=== PATIENT | female | born 1995 | race African-American/Black ===

== ENCOUNTER 2016-11-11 22:00 | Inpatient (IN) | payer BC ==
[2016-11-11] MEDS ORDERED: fentaNYL* 50 MCG/ML 2 ML VIAL (100 MCG VIAL) ONE (22:33)
[2016-11-11 22:37] LABS: Hematocrit 27 % (35-47); Hemoglobin 8.6 g/dl (12.0-16.0); Mean Corpuscular HGB Conc 32 g/dl (31-36); Mean Corpuscular Hemoglobin 23 pg (27-31); Mean Corpuscular Volume 73 fL (80-97); Mean Platelet Volume 9 um3 (7.4-10.4); Red Blood Count 3.74 10^6/ul (4.0-5.4); Red Cell Distribution Width 18 % (10.5-15); White Blood Count 19.7 10^3/ul (3.5-10.8)
[2016-11-11 22:44] LABS: Comments Flag Yes
[2016-11-11] MEDS ORDERED: Propofol* 10 MG/ML 20 ML BTL IV PUSH ONE (22:50)
[2016-11-11] MEDS ORDERED: Lidocaine 2% PF* 5 ML VIAL ONE (22:50)
[2016-11-11] MEDS ORDERED: OXYTOCIN* 10 UNITS/ML 1 ML VIAL ONE ×2 (22:50→22:57)
[2016-11-11] MEDS ORDERED: ceFOXitin 2 GM IVPREMIX* 2 GM/50 ML BAG ONE (22:53)
[2016-11-11] MEDS ORDERED: Acetaminophen TAB* 325 MG PO PRN (23:18)
[2016-11-11] MEDS ORDERED: Dibucaine 1% 28.35 GM TUBE PR PRN (23:18)
[2016-11-11] MEDS ORDERED: Witch Hazel PAD* JAR TOPICAL PRN (23:18)
[2016-11-11] MEDS ORDERED: Glycerin ADULT SUPP PR PRN (23:18)
[2016-11-11] MEDS ORDERED: Oxytocin in LR* 20 UNITS/1,000 ML BAG IVPB SCH (23:45)
[2016-11-11] MEDS ORDERED: Oxytocin in LR* 20 UNITS/1,000 ML BAG IVPB ONE (23:46)
[2016-11-12] MEDS: Ibuprofen TAB* 600 MG PO PRN ×3 (08:19→20:42)
[2016-11-12] MEDS: Docusate CAP* 100 MG PO SCH ×3 (08:21→20:42)
[2016-11-12] MEDS: Ferrous Gluconate TAB* 324 MG TAB PO SCH ×2 (08:27→20:42)
[2016-11-12] MEDS ORDERED: Simethicone CHEW TAB* 80 MG PO SCH (08:30)
[2016-11-12 09:55] LABS: Benzodiazepine Urine Screen None Detected (None Detect)
[2016-11-12 10:29] LABS: Hematocrit 28 % (35-47); Hemoglobin 8.9 g/dl (12.0-16.0); Mean Corpuscular HGB Conc 32 g/dl (31-36); Mean Corpuscular Hemoglobin 23 pg (27-31); Mean Platelet Volume 9 um3 (7.4-10.4); Red Blood Count 3.86 10^6/ul (4.0-5.4); Red Cell Distribution Width 18 % (10.5-15); White Blood Count 21.9 10^3/ul (3.5-10.8)
[2016-11-12 10:37] LABS: Comments Flag Yes
[2016-11-12 10:38] LABS: Mean Corpuscular Volume 72 fL (80-97)
--- NOTE | 2016-11-12 12:15 | PRO ---
NOTE: DATE OF OPERATION: 11/11/16 - ROOM #[id number]-118 DATE OF : 89 SURGEON/STUDIO MUSICIAN: Vijay Rasheed MD GEOLOGICAL DRAFTER: Elizabeth Wisdom CNM ANESTHESIA: Spinal intrathecal. PRE-OP DIAGNOSIS: A 33 weeks, in labor. POST-OP DIAGNOSIS: A 33 weeks, in labor with vertex breech delivery. OPERATIVE PROCEDURE: Vertex delivery followed by breech extraction. COMPLICATIONS: None. DESCRIPTION OF PROCEDURE: The patient presented to labor and delivery at 33 weeks at full dilation. She quickly had an IV placed in the labor room and brought back to the operating room. I explained to the patient that we would proceed with vaginal followed by breech extraction and an intrathecal was placed. She immediately pushed with rapid delivery of baby A, and baby B was grabbed by the foot and with some difficulty initially the second foot could not be located, attempts were made to rupture membranes to be able to feel things better. The ultrasound was used to also locate this area. Heart beat was noted to be good throughout the procedure by the pastry assistant. With artificial rupture of membranes, the second foot was located and at this point breech extraction was able to be performed. This happened without difficulty. There was no difficulty in delivering the head. Cords were doubly clamped and cut. Cord pHs were obtained, cord blood was obtained from placenta. Placenta delivered spontaneously and the patient was found to be intact. The patient returned to the recovery room in stable condition. [id number]/[facility] #: [id number] MTDD
[2016-11-13] MEDS: Docusate CAP* 100 MG PO SCH ×2 (09:06→14:00)
[2016-11-13] MEDS: Ibuprofen TAB* 600 MG PO PRN (09:07)
[2016-11-13] MEDS: Ferrous Gluconate TAB* 324 MG TAB PO SCH (09:07)
[2016-11-13 20:35] VITALS: BP 101/59
== END 2016-11-13 19:20 | disposition home or self-care (01) | DRG 560 ==
LOC: MCHOBOUT 22:00 → MCHOB 22:24
PROVIDERS: ADMIT Obstetrics & Gynecology; ATTEND Obstetrics & Gynecology
PROC: 10907ZC Drainage of Amniotic Fluid, Therapeutic from Products of Conception, Via Natural or Artificial Opening (ICD-10-PCS; principal; 2016-11-11)
PROC: 4A1HXCZ Monitoring of Products of Conception, Cardiac Rate, External Approach (ICD-10-PCS; 2016-11-11)
PROC: 10E0XZZ Delivery of Products of Conception, External Approach (ICD-10-PCS; 2016-11-11)
PROC: 10D07Z8 Extraction of Products of Conception, Other, Via Natural or Artificial Opening (ICD-10-PCS; 2016-11-11)
DX: O32.8XX2 Maternal care for other malpresentation of fetus, fetus 2 (principal); O60.14X1 Preterm labor third trimester with preterm delivery third trimester, fetus 1; O60.14X2 Preterm labor third trimester with preterm delivery third trimester, fetus 2; Z37.2 Twins, both liveborn; O90.81 Anemia of the puerperium; O30.043 Twin pregnancy, dichorionic/diamniotic, third trimester; Z3A.33 33 weeks gestation of pregnancy
CPT/HCPCS: 36415; 80307; 85025; 85027; 86850; 86900; 86901; 88307; A9270-GY; J0694; J2590; J2704; J3010

== ENCOUNTER 2017-07-15 11:50 | Emergency (ER) | payer BC, MEDICAID ==
[2017-07-15 12:31] VITALS: BP 111/74
--- NOTE | 2017-07-15 13:32 | UC ---
Respiratory Complaint HPI - HPI Summary HPI Summary: Pt c/o cough, nasal congestion and wheezing X 3-4 days. - History of Current Complaint Chief Complaint: UCGeneralIllness Stated Complaint: COUGH,CONGESTION Time Seen by Provider: 07/15/17 13:28 Hx Obtained From: Patient Hx Last Menstrual Period: 06/2017 is on BCP ?: No Onset/Duration: Sudden Onset, Lasting Days Timing: Constant Severity Initially: Mild Severity Currently: Moderate Character: Cough: Productive Aggravating Factors: Exertion, Deep Breaths, Recumbent Position Alleviating Factors: Nothing Associated Signs And Symptoms: Positive: Wheezing, URI, Nasal Congestion - Risk Factors Pulmonary Embolism Risk Factors: Oral Contraceptives, Smoking Cardiac Risk Factors: Smoking Pseudomonas Risk Factors: Negative Tuberculosis Risk Factors: Smoking - Allergies/Home Medications Allergies/Adverse Reactions: Allergies Allergy/AdvReac Type Severity Reaction Status Date / Time No Known Allergies Allergy Verified 07/15/17 12:31 Home Medications: Home Medications Etonogestrel [Nexplanon] 68 mg IMPLANT DAILY 07/15/17 [History Confirmed ] PMH/Surg Hx/FS Hx/Imm Hx Previously Healthy: Yes - Surgical History Surgical History: None - Family History Known Family History: Positive: Cardiac Disease - Social History Occupation: Employed Full-time Lives: With Family Alcohol Use: None Substance Use Type: None Smoking Status (MU): Light Every Day Tobacco Smoker Type: Cigarettes Amount Used/How Often: < 1/2 ppd Have You Smoked in the Last Year: Yes - Immunization History Most Recent Influenza Vaccination: none Most Recent Tetanus Shot: 07/15/14 Most Recent Pneumonia Vaccination: 0 Review of Systems Constitutional: Chills, Fatigue Skin: Negative Eyes: Negative ENT: Sore Throat, Sinus Congestion Respiratory: Shortness Of Breath, Cough, Other - wheezing Cardiovascular: Negative Gastrointestinal: Negative Genitourinary: Negative Motor: Negative Neurovascular: Negative Musculoskeletal: Negative Neurological: Negative Psychological: Negative Is Patient Immunocompromised?: No All Other Systems Reviewed And Are Negative: Yes Physical Exam Triage Information Reviewed: Yes Appearance: Ill-Appearing Vital Signs: Initial Vital Signs Temp 98.3 F 07/15/17 12:27 Pulse 58 07/15/17 12:27 Resp 17 07/15/17 12:27 BP 111/74 07/15/17 12:27 Pulse Ox 100 07/15/17 12:27 Vital Signs Reviewed: Yes Eye Exam: Normal ENT: Positive: Nasal congestion, Hoarse voice Dental Exam: Normal Neck exam: Normal Respiratory Exam: Other Respiratory: Positive: Wheezing Cardiovascular Exam: Normal Musculoskeletal Exam: Normal Neurological Exam: Normal Psychological Exam: Normal Skin Exam: Normal UC Diagnostic Evaluation - Laboratory O2 Sat by Pulse Oximetry: 100 Respiratory Course/Dx - Differential Dx/Diagnosis Differential Diagnosis/HQI/PQRI: Bronchitis, Other - wheezing Provider Diagnoses: Bronchitis. wheezing Discharge - Discharge Plan Condition: Stable Disposition: HOME Prescriptions: Albuterol HFA INHALER* [Ventolin HFA Inhaler*] 1 - 2 puff INH Q6H PRN #1 mdi PRN Reason: Wheezing Azithromycin TAB* [Zithromax TAB (Z-RYLIE) 250 mg #6 tabs] 2 tab PO .TODAY, THEN 1 DAILY #1 rylie Benzonatate CAP* [Tessalon 100 MG CAP*] 100 mg PO Q8H PRN #21 cap PRN Reason: Cough methylPREDNISolone TAB* [Medrol TAB*] 4 - 8 mg PO .SEE RYLIE #1 rylie Patient Education Materials: Acute Bronchitis (ED), Wheezing (ED) Forms: *Work Release Referrals: Hetal Davis MD [Primary Care Provider] - If Needed
== END 2017-07-15 13:47 | disposition home or self-care (01) ==
LOC: UCCORT 11:50
DX: J40 Bronchitis, not specified as acute or chronic (principal); R06.2 Wheezing; F17.210 Nicotine dependence, cigarettes, uncomplicated
CPT/HCPCS: 99212; G0463

== ENCOUNTER 2019-11-18 10:56 | Emergency (ER) | payer BC, MEDICAID ==
[2019-11-18 11:11] VITALS: BP 115/70
--- NOTE | 2019-11-18 11:25 | UC ---
Dental HPI - HPI Summary HPI Summary: pain left upper back tooth x 3 days pain is 6 out 10, worse with chewing , better with Tylenol , her wisdom tooth is coming out, pain at the left jaw , no swelling, no fever, no chills has cold symptoms with sore throat, nasal congestion no cough - History of Current Complaint Chief Complaint: UCGeneralIllness Stated Complaint: CONGESTION, MOUTH PROBLEM Time Seen by Provider: 11/18/19 11:13 Hx Obtained From: Patient Hx Last Menstrual Period: 06/2017 is on BCP Onset/Duration: Gradual Onset, Lasting Days - 3, Still Present Severity: Moderate Pain Intensity: 6 Aggravating Factor(s): Chewing Alleviating Factor(s): OTC Meds Dental: 1 - tender - Allergies/Home Medications Allergies/Adverse Reactions: Allergies Allergy/AdvReac Type Severity Reaction Status Date / Time No Known Allergies Allergy Verified 11/18/19 11:11 Home Medications: Home Medications Etonogestrel [Nexplanon] 68 mg IMPLANT DAILY 07/15/17 [History Confirmed ] Amoxicillin PO (*) [Amoxicillin 875 MG (*)] 875 mg PO BID #20 tab 11/18/19 [Rx] PMH/Surg Hx/FS Hx/Imm Hx Previously Healthy: Yes - Surgical History Surgical History: None - Family History Known Family History: Positive: Cardiac Disease - Social History Alcohol Use: None Substance Use Type: None Smoking Status (MU): Light Every Day Tobacco Smoker Type: Cigarettes Amount Used/How Often: < 1/2 ppd Have You Smoked in the Last Year: Yes - Immunization History Most Recent Influenza Vaccination: none Most Recent Tetanus Shot: 07/15/14 Most Recent Pneumonia Vaccination: 0 Review of Systems All Other Systems Reviewed And Are Negative: Yes Is Patient Immunocompromised?: No Physical Exam Triage Information Reviewed: Yes Appearance: Well-Appearing, No Pain Distress, Well-Nourished Vital Signs: Initial Vital Signs Temp 98.0 F 11/18/19 11:06 Pulse 64 11/18/19 11:06 Resp 18 11/18/19 11:06 BP 115/70 11/18/19 11:06 Pulse Ox 100 11/18/19 11:06 Vital Signs Reviewed: Yes Eye Exam: Normal Eyes: Positive: Conjunctiva Clear ENT: Positive: Normal ENT inspection, Hearing grossly normal, Pharynx normal, Nasal congestion, TMs normal. Negative: Nasal drainage Dental: Positive: Percussion Tenderness @ - # 16. Negative: Gross Decay/Caries @, Dental Fracture @, Abscess @ Neck: Positive: Supple, Nontender, No Lymphadenopathy Respiratory: Positive: Chest non-tender, Lungs clear, Normal breath sounds Cardiovascular: Positive: RRR, No Murmur, Pulses Normal Dental Complaint Course/Dx - Differential Dx/Diagnosis Provider Diagnosis: Pain, dental, URI (upper respiratory infection) Discharge ED - Sign-Out/Discharge Documenting (check all that apply): Patient Departure All imaging exams completed and their final reports reviewed: No Studies - Discharge Plan Condition: Stable Disposition: HOME Prescriptions: Amoxicillin PO (*) [Amoxicillin 875 MG (*)] 875 mg PO BID #20 tab Patient Education Materials: Upper Respiratory Infection (ED), Toothache (ED) Forms: *Work Release Referrals: Hetal Davis MD [Primary Care Provider] - 7 Days - Billing Disposition and Condition Condition: STABLE Disposition: Home
== END 2019-11-18 11:35 | disposition home or self-care (01) ==
LOC: UCCORT 10:56
DX: K08.89 Other specified disorders of teeth and supporting structures (principal); J06.9 Acute upper respiratory infection, unspecified; F17.210 Nicotine dependence, cigarettes, uncomplicated
CPT/HCPCS: 99212; G0463